=== PATIENT | male | born 1955 ===

== ENCOUNTER 2022-02-16 16:12 | Inpatient (IN) | payer MEDICARE ==
[~2022-02-16] VITALS: Ht 182.9 cm; Wt 110.0 kg
--- NOTE | 2022-02-16 16:37 | Progress Note ---
Progress Note Jordin Arias is a 66 year old male with history of T2DM and CAD who presented to [facility] with hypoglycemia. His blood sugars were in the 30s. He takes Glipizide. His blood sugar improved. His workup revealed an elevated high-sensitivity troponin 726. He then admitted to having had chest pain for several days. His EKG did not reveal any ST elevations. He was given ASA, Plavix, and started on Heparin gtt. He reportedly refused to be swabbed for flu and COVID and will be placed in isolation upon arrival. We will then attempt to obtain flu and COVID testing. We will monitor his blood sugars and treat with IV sliding scale for hyperglycemia and will add dextrose-containing fluids as needed for hypoglycemia. He will be transferred to [facility] ICU for NSTEMI. Dr. Thompson was contacted and is aware of the patient and plan. There is no ETA at this time. LAINEY CERRATO MD Feb 16, 2022 16:37
--- OUTSIDE RECORDS SUMMARY | 2022-02-16 18:09 | XMS REPORT | Clinical Summary ---
Author Author [facility] Organization [facility] Address Unknown Phone Unavailable Care Team Providers Care Phlebotomist Medical Lab Assistant Name Role Phone TarikNayeli CRISTOFER PCP Allergies Comments Active Allergy Reactions Severity Noted Date Penicillins Anaphylaxis High 02/14/2021 Sulfa (Sulfonamide Hives Medium 02/14/2021 Antibiotics) Medications End Date Status Medication Sig Dispensed Refills Start Date Active atorvastatin (LIPITOR) 80 Take 80 mg by 0 MG tablet mouth daily. Active tamsulosin (FLOMAX) 0.4 Take 0.4 mg 0 mg cap by mouth daily. Active metformin (GLUCOPHAGE) Take 1,000 mg 0 1000 mg tablet by mouth 2 (two) times a day with meals. Active famotidine (PEPCID) 20 MG Take 20 mg by 0 tablet mouth 2 (two) times a day. Active lisinopriL Take 10 mg by 0 (PRINIVIL,ZESTRIL) 10 MG mouth daily. tablet Active SITagliptin (JANUVIA) 100 Take 100 mg 0 MG tablet by mouth daily. Active glimepiride (AMARYL) 2 MG Take 2 mg by 0 tablet mouth 2 (two) times a day. Active albuterol (VENTOLIN HFA) Inhale 2 0 90 mcg/actuation HFA puffs every 6 inhaler (six) hours as needed for wheezing. Active ciprofloxacin HCl (CIPRO) Take 1 tablet 9 tablet 0 500 MG tabletIndications: (500 mg 2 HAP/VAP, pneumonia, total) by bronchiectasis mouth 2 (two) times a day. Active clopidogreL (PLAVIX) 75 Take 1 tablet 30 tablet 1 mg tablet (75 mg total) 2 by mouth daily. Active colestipoL (COLESTID) 1 Take 2 60 tablet 0 gram tabletIndications: tablets (2 g 2 diarrhea total) by mouth 2 (two) times a day. Active digoxin (LANOXIN) 125 mcg Take 1 tablet 30 tablet 1 (0.125 mg) tablet (125 mcg 2 total) by mouth every evening. Active magnesium oxide (MAG-OX) Take 1 tablet 30 tablet 0 400 mg (241.3 mg (400 mg 2 magnesium) total) by tabletIndications: mouth daily. hypomagnesemia Active metroNIDAZOLE (FLAGYL) Take 1 tablet 9 tablet 0 0 500 MG tabletIndications: (500 mg 2 pneumonia total) by mouth 2 (two) times a day. Active sotaloL (BETAPACE) 160 MG Take 1 tablet 60 tablet 0 tabletIndications: (160 mg 2 prevention of recurrent total) by atrial fibrillation mouth every 12 (twelve) hours. Active warfarin (COUMADIN) 1 MG Take 2 60 tablet 0 0 tabletIndications: tablets (2 mg 2 prevent thromboembolism total) by in chronic atrial mouth every fibrillation evening. Or take as directed based on INR test result (goal range 2-3) Active vancomycin (VANCOCIN) 125 Take 1 54 capsule 0 MG capsuleIndications: capsule (125 2 CLOSTRIDIUM DIFFICILE mg total) by INFECTION mouth 4 (four) times a day. Active Problems Problem Noted Date Diabetes mellitus type 2, noninsulin dependent 05/09 Asthma 05/09/2021 S/P coronary artery stent placement 05/09/2021 Hypomagnesemia 03/13/2021 Last Assessment & Plan: Formatting of t his note might be different from the original. -Magnesium 1.4. -Will start PO magnesium replacement as he no longer has IV access ( may aggravate diarrhea) -Electrolyte replacement protocol as ne eded. -Continue to monitor. Nephrolithiasis 03/11/2021 Last Assessment & Plan: Formatting of t his note might be different from the original. -CT enterography incidentally noted 13 x 20 mm calculus in the left renal pelvis with urothelial inflammation and perinephric stranding. -Patient reports history of kidney ston es requiring prior interventions. Denies any symptoms at this time. -UA ordered to rule out infectious proc ess. -Discussed urology evaluation and patie nt not concerned about this at this time; will defer to outpatient for now. RBC Alloantibody present. 03/07/2021 Iron deficiency anemia 03/06/2021 Last Assessment & Plan: Formatting of t his note might be different from the original. -Hemoglobin stable. -S/p 3 units PRBCs this admission. -Concern for possible GI bleeding with intermittent dark stools. -EGD and colonoscopy negative for obvio us signs of bleeding. -CT enterography nondiagnostic but no o bvious evidence of strictures or inflammation. -Video capsule study performed on 03/11. Showed normal mucosa throughout the small bowel. No evidence of AVMs, erosions, or other process to explain anemia. -Continue PPI daily for 4 weeks. -Monitor hemoglobin and transfuse for h emoglobin less than 7.0. Hospital-acquired pneumonia 02/26/2021 Last Assessment & Plan: Formatting of t his note might be different from the original. -History of recurrent pneumonia at [facility] once per year per patient. -Completed 10-day course of aztreonam w ithout improvement in his symptoms. -Pulmonology consulted and performed a bronchoscopy on 03/08. -Respiratory panel from bronchoscopy on 03/08 was positive for Pseudomonas and culture grew achromobacter; see abo ve. -Continue antibiotics as above. -Encouraged frequent use of PEP device. PT/OT also recommended if patient agreeable. -Guaifenesin ordered as needed. Type 2 myocardial infarction 02/15/2021 Last Assessment & Plan: Formatting of t his note might be different from the original. -Likely demand ischemia. -Cardiology following. CAD S/P percutaneous coronary angioplasty 02/15/2021 Last Assessment & Plan: Formatting of t his note might be different from the original. -Continue ticagrelor. Stopped ASA with initiation of anticoagulation (warfarin). Chronic obstructive pulmonary disease 02/15/2021 Last Assessment & Plan: Formatting of t his note might be different from the original. -Continue bronchodilators. -See above. BPH (benign prostatic hyperplasia) 02/15/2021 Last Assessment & Plan: Formatting of t his note might be different from the original. -Continue tamsulosin. [facility] on CPAP 02/15/2021 Last Assessment & Plan: Formatting of t his note might be different from the original. -Continue CPAP nightly if tolerated. H as had trouble tolerating hospital equipment. Okay to use home equipment if available but [place] so unlikely to be able to obtain. Non-insulin dependent type 2 diabetes mellitus 02/15 Last Assessment & Plan: Formatting of t his note might be different from the original. -Hemoglobin A1c 7.1. -Blood sugars continue to fluctuate up and down. -Holding home glimepiride. -Increase Lantus to 24 units nightly. -Continue Humalog 5 units 3 times daily with meals plus sliding scale insulin (level increased today) as need ed. -Accu-Cheks with sliding scale insulin as needed. -Hypoglycemia protocol. HLD (hyperlipidemia) 02/15/2021 Last Assessment & Plan: Formatting of t his note might be different from the original. -Continue statin. Atrial fibrillation with rapid ventricular response 02/14/2021 Last Assessment & Plan: Formatting of t his note might be different from the original. -Patient continues to have some intermi ttent episodes of atrial fibrillation, but much less frequent ov erall. -Evaluated by EP who recommended contin uing sotalol and digoxin. -Continue sotalol per cardiology recomm endations. -Continue digoxin. -Cardiology signed off. Per their recom mendations, patient likely will continue to have episodes of atrial fib rillation. Recommended if patient is symptomatic from RVR, can try diltiazem 60 mg p.o. x1. No other interventions recommended unless patien t has >24 hours of atrial fibrillation. -MCOT on discharge. -Could consider ablation as an outpatie nt after 1 month MCOT and follow-up in clinic to discuss. -Continue warfarin for anticoagulation; pharmacy to dose. 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 Last Assessment & Plan: Formatting of t his note might be different from the original. -Recently hospitalized for 1 week at [facility]. Symptoms for least 3 weeks. -Previously unvaccinated. Obesity (BMI 30.0-34.9) 04/22/2020 Last Assessment & Plan: Formatting of t his note might be different from the original. -BMI of Body mass index is 33.92 kg/m . complicates all care. Will plan for counseling regarding diet and exerc ise. Paroxysmal atrial fibrillation 04/22/2020 [facility] on CPAP 04/22/2020 Chronic systolic (congestive) heart failure 04/21/19 21 Overview: Formatting of this note might be differ ent from the original. Added automatically from request for [facility] [id number] Formatting of this note might be differ ent from the original. Added automatically from request for [facility] [id number] Last Assessment & Plan: Formatting of t his note might be different from the original. -Most recent echocardiogram with EF 40% (improved from 25% in 03/2020). -Cardiology following. -Remains euvolemic on exam. Previously recommended trial of furosemide after blood transfusions to see if this helped his respiratory symptoms but patient declined. -Daily weights monitor I's and O's. 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 difficile diarrhea 02/23/2021 05/09/2021 Last Assessment & Plan: Formatting of t his note might be different from the original. -C. difficile positive on 02/24/2021. -Continues to have diarrhea and patient reports this is a chronic issue, but much more frequent than baseline. -GI following; EGD, colonoscopy, and vi marisela capsule study completed as noted above. -Patient has completed a full course of vancomycin for C. difficile colitis but will continue oral vancomycin for n ow until finished with antibiotics for pneumonia. -Continue colestipol per GI. -Lactobacillus. -Enteric precautions. Bronchiectasis with (acute) exacerbation 02/15/2021 05/09/2021 Last Assessment & Plan: Formatting of t his note might be different from the original. -Completed 10-day course of aztreonam w ithout improvement in symptoms. -Pulmonology initially offered bronchos copy but patient was not interested at that time. However, despite nebuliz er treatments and antibiotics symptoms do not appear improved and if anything worse per patient. Reconsulted pulmonary on 03/07 and patie nt underwent bronchoscopy on 03/08. -Respiratory panel from bronchoscopy wa s positive for Pseudomonas. Culture growing achromobacter which came back w ith intermediate sensitivity to ciprofloxacin. -Per ID and Pulm: Continue ciprofloxaci n (day #6). Respiratory symptoms have improved since starting ciprofloxa jessica; -Per pulmonary, suspect chronic bronchi ectasis (as noted by radiology) and needs outpatient follow-up with PFTs an d serial imaging. Will need follow-up on discharge. Family History Medical History Relation Name Comments Heart attack Father Heart attack Mother Relation Name Status Comments Father Mother Social History Date Tobacco Use Types Packs/Day Years Used Smoking Tobacco: Never Assessed Sex Assigned at Date Recorded Not on file Last Filed Vital Signs Reading Time Taken Comments Vital Sign 114/58 03/15/2021 11:12 AM [employer]AR[employer] TECHNICIAN Blood Pressure 79 03/15/2021 11:12 AM PEARL TECHNICIAN Pulse 36.6 C (97.9 F) 03/15/2021 11:12 AM PEARL TECHNICIAN Temperature 18 03/15/2021 11:12 AM PEARL TECHNICIAN Respiratory Rate 96% 03/15/2021 11:12 AM PEARL TECHNICIAN Oxygen Saturation - - Inhaled Oxygen Concentration 110.5 kg (243 lb 11.2 oz) 03/15/2021 4:21 AM PEARL TECHNICIAN Weight 182.9 cm (6') 02/14/2021 10:13 PM PEARL TECHNICIAN Height 33.05 02/14/2021 10:13 PM PEARL TECHNICIAN Body Mass Index Plan of Treatment Health Maintenance Due Date Last Done Comments Diabetes Mellitus 1954 Ophthalmology Exam FIT-DNA 1954 Fecal Occult Blood or FIT 1954 Hepatitis C Screen 1954 Medicare Annual Wellness 1954 Sigmoidoscopy 1954 Spirometry # 1954 Td/Tdap# 1954 COVID-19 Vaccine (#1) 03/01/1955 Pneumococcal Vaccine: 65+ 1960 Years (1 - PCV) Diabetes Mellitus Foot 1964 Exam Zoster Vaccine# (1 of 2) 2004 Depression Screening 08/30/2019 PHQ-9 # Advance Care Planning 02/26/2021 Conversation# Social Determinants of 02/26/2021 02/14/2021 Health# Diabetes Mellitus 08/15/2021 02/14/2021 Hemoglobin A1C Influenza Vaccine (#1) 2021 Lipid Screening 02/15/2022 02/15/2021, 04/22/2020, 04/22/2020 Fall Risk Assessment # 03/15/2022 03/15/2021 Colonoscopy 03/08/2031 03/08/2021 Colorectal Cancer 03/08/2031 Screening Results Not on filefrom Last 3 Months Insurance Type Payer Benefit Subscriber ID Effective Phone Address Plan / Dates Group MEDICARE REPLACEMENT PLAN [facility] [id number] 2021-P [phone] [address] MED[address]ARE resent [id number] [place] [address] MEDICAID PENDING MEDICAID [id number] [address] PEND[address] resent [id number] [place] [address] [place] [id number] 2021 PO [employer] -Present [address] [place] [address] Advance Directives For more information, please contact: [phone] Date Inactivated Comments Code Status Date Activated Full Code 03/08/2021 7:47 AM Date Inactivated Comments Code Status Date Activated 03/08/2021 7:47 AM Full Code 02/15/2021 4:57 AM Care Teams Start Date End Date Phlebotomist Medical Lab Assistant Relationship Specialty 02/15/21 Nayeli Montanez FNP PCP - General Nurse [address] [place] [address] THALIA CRUZ [id number]
[2022-02-16] MEDS ORDERED: BISACODYL 10 MG SUPP (DULCOLAX) PR PRN (18:15)
[2022-02-16] MEDS ORDERED: ACETAMINOPHEN 325 MG TABLET PO PRN (18:15)
[2022-02-16] MEDS ORDERED: diphenhydrAMINE 25 MG TAB (BENADRYL) PO PRN (18:15)
[2022-02-16] MEDS ORDERED: LACTULOSE SYRUP 10GM/15ML (ENULOSE) 30ML UDC PO PRN (18:15)
[2022-02-16] MEDS ORDERED: CALCIUM CARBONATE 500 MG (TUMS) TAB.CHEW PO PRN (18:15)
[2022-02-16] MEDS ORDERED: ONDANSETRON 4 MG (ZOFRAN) ORAL DISSOLVE TAB PO PRN (18:15)
[2022-02-16] MEDS ORDERED: polyethylene glycoL POWDER 17 GM (MIRALAX) PACK PO PRN (18:15)
[2022-02-16] MEDS ORDERED: ONDANSETRON 4 MG/2 ML (SDV) Z0FRAN IV PRN (18:15)
[2022-02-16] MEDS ORDERED: MELATONIN 3 MG TABLET PO PRN (18:15)
[2022-02-16] MEDS ORDERED: diphenhydrAMINE 50 MG/ML INJ (BENADRYL) IVP PRN (18:15)
[2022-02-16] MEDS ORDERED: ANTACID SUSP 30 ML UDC (MYLANTA) PO PRN (18:15)
[2022-02-16] MEDS ORDERED: MILK OF MAGNESIA 400 MG/5 ML 30 ML UDC PO PRN (18:15)
[2022-02-16] MEDS ORDERED: HEParin 1000 UNIT/ML (10ML VIAL) FOR BOLUS IV PRN (18:45)
[2022-02-16] MEDS ORDERED: HEParin DRIP 25000 UNIT/500ML 500 ML IV SCH (18:45)
[2022-02-16 19:18] LABS: HEMATOCRIT 36 % (40-54); HEMOGLOBIN 11.5 g/dL (13.3-17.7); MEAN CORPUSCULAR HEMOGLOBIN 31 pg (25-34); MEAN CORPUSCULAR HGB CONC 32 g/dL (32-36); MEAN CORPUSCULAR VOLUME 98 fL (80-99); MEAN PLATELET VOLUME 9.4 fL (9.0-12.2); PLATELET COUNT 210 10^3/uL (130-400)
[2022-02-16] MEDS: D5 NS 1000 ML IV SOLUTION 1,000 ML IV SCH (19:25)
[2022-02-16 19:31] LABS: INR 1.1 (0.8-1.4)
[2022-02-16 19:35] LABS: ALBUMIN 3.6 GM/DL (3.2-4.5); CALCIUM 8.6 MG/DL (8.5-10.1); CREATININE SERUM 1.73 MG/DL (0.60-1.30); POTASSIUM 3.3 MMOL/L (3.6-5.0); TOTAL PROTEIN 6.9 GM/DL (6.4-8.2)
[2022-02-16] MEDS: DOCUSATE SODIUM 100 MG (COLACE) CAP PO SCH (20:46)
[2022-02-16] MEDS: SENNOSIDES 8.6 MG (SENOKOT) TAB PO SCH (20:47)
[2022-02-16] MEDS: inSUlin ASPART (NovoLOG) 1 UNIT/0.01 ML (CHARGE PER UNIT) SC SCH (21:05)
[2022-02-16] MEDS ORDERED: NS IV 500 ML 500 ML IV PRN (21:30)
[2022-02-17] MEDS: D5 NS 1000 ML IV SOLUTION 1,000 ML IV SCH (01:49)
[2022-02-17 02:09] LABS: BASOPHILS % (AUTO) 0 % (0-10); EOSINOPHILS % (AUTO) 0 % (0-10); HEMATOCRIT 32 % (40-54); HEMOGLOBIN 10.4 g/dL (13.3-17.7); LYMPHOCYTES % (AUTO) 22 % (12-44); MEAN CORPUSCULAR HEMOGLOBIN 32 pg (25-34); MEAN CORPUSCULAR HGB CONC 32 g/dL (32-36); MEAN CORPUSCULAR VOLUME 99 fL (80-99); MEAN PLATELET VOLUME 9.6 fL (9.0-12.2); MONOCYTES # (AUTO) 0.7 10^3/uL (0.0-1.0); MONOCYTES % (AUTO) 8 % (0-12); NEUTROPHILS # (AUTO) 6.2 10^3/uL (1.8-7.8); NEUTROPHILS % (AUTO) 70 % (42-75); PLATELET COUNT 193 10^3/uL (130-400)
[2022-02-17 02:26] LABS: POTASSIUM 3.4 MMOL/L (3.6-5.0)
[2022-02-17 02:31] LABS: CREATININE SERUM 1.65 MG/DL (0.60-1.30)
[2022-02-17] MEDS: KCL 20 MEQ TAB (K-DUR) PO SCH (03:03)
[2022-02-17] MEDS: POTASSIUM CL 10MEQ/50ML IVPB 50 ML IV SCH ×3 (03:04→04:37)
[2022-02-17] MEDS: MAGNESIUM 1 GM/100 ML IVPB 100 ML IV SCH (03:31)
[2022-02-17] MEDS: inSUlin ASPART (NovoLOG) 1 UNIT/0.01 ML (CHARGE PER UNIT) SC SCH ×4 (03:32→21:17)
[2022-02-17] MEDS ORDERED: POTASSIUM CL 10MEQ/50ML IVPB 100 ML IV ONE (03:34)
[2022-02-17 03:39] VITALS: BP 120/70
[2022-02-17] MEDS ORDERED: RT-ALBUTEROL/IPRATROPIUM 3 ML (DUONEB) VIAL INH PRN (04:00)
[2022-02-17] MEDS: RT-ALBUTEROL/IPRATROPIUM 3 ML (DUONEB) VIAL INH SCH ×5 (07:07→22:09)
[2022-02-17] MEDS: CLOPIDOGREL 75 MG (PLAVIX) TABLET PO SCH (08:28)
[2022-02-17] MEDS: DOCUSATE SODIUM 100 MG (COLACE) CAP PO SCH ×2 (08:28→19:50)
[2022-02-17] MEDS: SENNOSIDES 8.6 MG (SENOKOT) TAB PO SCH ×2 (08:28→19:51)
[2022-02-17] MEDS ORDERED: ASPIRIN 81 MG CHEW (CHILDREN'S ASA) PO SCH (09:00)
--- NOTE | 2022-02-17 09:26 | Diagnostic Imaging Report ---
Indication: Cough and shortness of air. Time of Exam: 9:16 AM No prior studies are available for comparison. Heart size normal. There appears to be some consolidation in the left base, obscuring the left hemidiaphragm. There may be minimal patchy infiltrate in the right base as well near the costophrenic angle. Otherwise the lungs appear clear. No effusion or pneumothorax is seen. Impression: Bibasilar infiltrates, left greater suggestive of pneumonia. Dictated by: Dictated on workstation # [id number]
--- NOTE | 2022-02-17 10:16 | Tele-ICU Consult ---
History of Present Illness History of Present Illness Date Seen by Provider: Feb 17, 2022 Time Seen by Provider: 10:16 Date of Admission (Tele-ICU Physician , consultation as per request of PCP Service provided via interactive audio and video telecommunications E-CARE system to a patient admitted to ICU bed in [facility]. Available chart/ vitals / labs / Images reviewed H&P is from ER notes Patient's information available about PMH, Shx, Fhx allergy reviewed inEMR. ROS as per chart and RN report Now in ICU, hemodynamically stable Video assessment done using teleICU camera, rest of exam as per RN Discussed with RN. Consultants: semaj Hospital course: transfer from [facility] to [facility] where was presented with hypoglycemia. 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 Lines : periph , (Central Line Necessity Reviewed) Bowman: void OG: Nutrition: Analgesia: Anxiety/ delirium VTE Prophylaxis: hep gtt Stress Ulcer Prophylaxis: na Plans in collaboration with bedside consultants and IM MDs. Discussed with RN to reach out if any questions or concerns A total of 15 minutes of critical care time was devoted to this patient today, required to treat and/or prevent further deterioration of critical care condition ( as above ) . I am remotely monitoring this patient from another state. I am unable to do the bedside exam, and history/physical and pertinent information is taken from other notes in the computer and bedside staff. . Allergies and Home Medications Allergies Coded Allergies: Penicillins (Verified Allergy, Severe, Anaphylaxis, 02/16/22) Sulfa (Sulfonamide Antibiotics) (Verified Allergy, Unknown, Hives, 02/16/22) Past Medical/Social/Family Hx Patient Social History Tobacco Use?: No Use of E-Cig and/or Vaping dev: No Substance use?: No Alcohol Use?: Yes Alcohol type: Beer Alcohol Frequency: Couple times a week 6 PK/WEEK Pt stated abuse/neglect: No Immunizations Up To Date Influenza Vaccine Up-to-Date: No; Not Current Current Status Advance Directives: No Communicates: Verbally Primary Language: Syriac Is interpretation needed?: Unable to obtain Sensory deficits: Vision impairment Implanted or Applied Medical D: Stents Review of Systems Constitutional: see HPI Focused Exam Height, Weight, BMI Height: '" Weight: lbs. oz. kg; 32.64 BMI Method: Exam Exam Patient acknowledged, consented, and participated in this virtual visit which was conducted using real time audio/video Vital Signs Date Time Temp Pulse Resp B/P (MAP) Pulse Ox O2 Delivery O2 Flow Rate FiO2 02/17/22 09:00 82 13 141/76 (97) 100 Nasal Cannula 1.00 02/17/22 08:00 84 14 134/76 (95) 95 Nasal Cannula 1.00 02/17/22 08:00 Nasal Cannula 1.00 02/17/22 07:47 37.0 02/17/22 07:07 100 Nasal Cannula 1.00 02/17/22 07:00 81 24 143/75 (97) 100 Nasal Cannula 1.00 02/17/22 07:00 82 02/17/22 06:00 84 20 142/74 (96) 98 Nasal Cannula 1.00 02/17/22 05:00 83 16 129/67 (87) 96 Nasal Cannula 1.00 02/17/22 04:00 37.0 02/17/22 04:00 87 18 125/67 (86) 95 Nasal Cannula 1.00 02/17/22 04:00 Nasal Cannula 1.00 02/17/22 03:43 Nasal Cannula 1.00 02/17/22 03:39 37.9 87 92 24 02/17/22 03:15 92 Nasal Cannula 1.00 02/17/22 03:00 88 20 120/58 (78) 94 Nasal Cannula 2.00 02/17/22 02:00 90 24 130/60 (83) 95 Nasal Cannula 2.00 02/17/22 01:34 Nasal Cannula 2.00 02/17/22 01:00 37.9 02/17/22 01:00 91 02/17/22 01:00 91 22 120/58 (78) 94 Room Air 02/17/22 00:34 37.9 02/17/22 00:04 38.1 02/17/22 00:00 91 16 132/68 (89) 90 Room Air 02/17/22 00:00 38.1 02/16/22 23:59 Room Air 02/16/22 23:00 89 15 120/70 (87) 91 Room Air 02/16/22 22:00 90 26 133/72 (92) 92 Room Air 02/16/22 21:00 90 26 130/85 (100) 92 Room Air 02/16/22 20:00 37.9 02/16/22 20:00 84 16 120/74 (89) 92 Room Air 02/16/22 20:00 Room Air 02/16/22 19:00 85 15 128/71 (90) 92 Room Air 02/16/22 19:00 85 02/16/22 18:36 37.7 02/16/22 18:31 Room Air 02/16/22 18:10 Room Air I & O 02/17/22 07:00 Intake Total 1450 ml Output Total 650 ml Balance 800 ml Height & Weight Height: '" Weight: lbs. oz. kg; 32.64 BMI Method: General Appearance: No Apparent Distress Results Lab Laboratory Tests 02/16/22 19:08 02/17/22 01:52 Assessment/Plan Assessment/Plan 1 JUAN RAMON PETER MD Feb 17, 2022 10:16
--- NOTE | 2022-02-17 10:21 | Consultation-Cardiology ---
HPI-Cardiology Cardiology Consultation Date of Consultation 02/17/22 Date of Admission Time Seen by Provider: 10:16 Indication: Non-ST elevation myocardial infarction HPI 66-year-old gentleman with history of coronary artery disease, 2 stents in the past about [address] Liu, paroxysmal atrial fibrillation. Patient felt that he was coming out with congestion, he was having increasing shortness of breath and phlegm production. Has been having some chest pain on and off. Came into the emergency room due to hypoglycemia. Work-up showed positive troponin. He has been having chest pain on and off. No active chest pain today, EKG showed nonspecific changes. Still having significant sputum production Home Medications & Allergies Allergies: Coded Allergies: Penicillins (Verified Allergy, Severe, Anaphylaxis, 02/16/22) Sulfa (Sulfonamide Antibiotics) (Verified Allergy, Unknown, Hives, 02/16/22) Home Medication List Reviewed: Yes [id number] Hx Patient Social History Marital Status: Have you traveled recently?: No Alcohol Use?: Yes Past Medical History Discussed below Family Medical History Family Medical Hx Noncontributory Review of Systems-General Review of Systems Constitutional: see HPI, malaise EENTM: see HPI, no symptoms reported Respiratory: see HPI, cough, dyspnea on exertion, phlegm Cardiovascular: see HPI, chest pain Gastrointestinal: no symptoms reported, see HPI Genitourinary: no symptoms reported, see HPI Musculoskeletal: no symptoms reported, see HPI Skin: no symptoms reported, see HPI Psychiatric/Neurological: No Symptoms Reported, See HPI Reviewed Test Results Reviewed Test Results Lab Laboratory Tests Test 02/16/22 18:22 02/16/22 19:08 02/16/22 20:53 02/17/22 01:51 Range/Units Glucometer 59 *L 118 H 70-110 MG/DL White Blood Count 9.0 4.3-11.0 10^3/uL Red Blood Count 3.68 L 4.30-5.52 10^6/uL Hemoglobin 11.5 L 13.3-17.7 g/dL Hematocrit 36 L 40-54 % Mean Corpuscular Volume 98 80-99 fL Mean Corpuscular Hemoglobin 31 25-34 pg Mean Corpuscular Hemoglobin Concent 32 32-36 g/dL Red Cell Distribution Width 13.3 10.0-14.5 % Platelet Count 210 130-400 10^3/uL Mean Platelet Volume 9.4 9.0-12.2 fL Prothrombin Time 15.0 H 12.2-14.7 SEC INR Comment 1.1 0.8-1.4 Activated Partial Thromboplast Time 101 H 24-35 SEC Sodium Level 138 135-145 MMOL/L Potassium Level 3.3 L 3.6-5.0 MMOL/L Chloride Level 106 98-107 MMOL/L Carbon Dioxide Level 20 L 21-32 MMOL/L Anion Gap 12 5-14 MMOL/L Blood Urea Nitrogen 52 H 7-18 MG/DL Creatinine 1.73 H 0.60-1.30 MG/DL Estimat Glomerular Filtration Rate 43 BUN/Creatinine Ratio 30 Glucose Level 77 70-105 MG/DL Calcium Level 8.6 8.5-10.1 MG/DL Corrected Calcium 8.9 8.5-10.1 MG/DL Total Bilirubin 1.0 0.1-1.0 MG/DL Aspartate Amino Transf (AST/SGOT) 46 H 5-34 U/L Alanine Aminotransferase (ALT/SGPT) 26 0-55 U/L Alkaline Phosphatase 101 40-136 U/L Troponin I 0.393 *H <0.028 NG/ML Total Protein 6.9 6.4-8.2 GM/DL Albumin 3.6 3.2-4.5 GM/DL Magnesium Level 2.0 1.6-2.4 MG/DL Test 02/17/22 01:52 02/17/22 09:00 02/17/22 09:30 Range/Units White Blood Count 9.0 4.3-11.0 10^3/uL Red Blood Count 3.28 L 4.30-5.52 10^6/uL Hemoglobin 10.4 L 13.3-17.7 g/dL Hematocrit 32 L 40-54 % Mean Corpuscular Volume 99 80-99 fL Mean Corpuscular Hemoglobin 32 25-34 pg Mean Corpuscular Hemoglobin Concent 32 32-36 g/dL Red Cell Distribution Width 13.2 10.0-14.5 % Platelet Count 193 130-400 10^3/uL Mean Platelet Volume 9.6 9.0-12.2 fL Immature Granulocyte % (Auto) 0 % Neutrophils (%) (Auto) 70 42-75 % Lymphocytes (%) (Auto) 22 12-44 % Monocytes (%) (Auto) 8 0-12 % Eosinophils (%) (Auto) 0 0-10 % Basophils (%) (Auto) 0 0-10 % Neutrophils # (Auto) 6.2 1.8-7.8 10^3/uL Lymphocytes # (Auto) 2.0 1.0-4.0 10^3/uL Monocytes # (Auto) 0.7 0.0-1.0 10^3/uL Eosinophils # (Auto) 0.0 0.0-0.3 10^3/uL Basophils # (Auto) 0.0 0.0-0.1 10^3/uL Immature Granulocyte # (Auto) 0.0 0.0-0.1 10^3/uL Activated Partial Thromboplast Time 60 H 68 H 24-35 SEC Sodium Level 136 135-145 MMOL/L Potassium Level 3.4 L 3.6-5.0 MMOL/L Chloride Level 106 98-107 MMOL/L Carbon Dioxide Level 17 L 21-32 MMOL/L Anion Gap 13 5-14 MMOL/L Blood Urea Nitrogen 47 H 7-18 MG/DL Creatinine 1.65 H 0.60-1.30 MG/DL Estimat Glomerular Filtration Rate 45 BUN/Creatinine Ratio 28 Glucose Level 144 H 70-105 MG/DL Calcium Level 8.0 L 8.5-10.1 MG/DL Troponin I 0.291 *H <0.028 NG/ML Physical Exam Physical Exam Vital Signs Vital Signs - First Documented 02/16/22 02/16/22 02/16/22 02/17/22 02/17/22 18:10 18:36 19:00 01:34 03:39 Temp 37.7 Pulse 85 Resp 15 B/P (MAP) 128/71 (90) Pulse Ox 92 O2 Delivery Room Air O2 Flow Rate 2.00 FiO2 24 Capillary Refill : Height, Weight, BMI Height: '" Weight: lbs. oz. kg; 32.64 BMI Method: General Appearance: No Apparent Distress Eyes: Bilateral Eye Normal Inspection, Bilateral Eye PERRL, Bilateral Eye EOMI HEENT: PERRL/EOMI, TMs Normal, Normal ENT Inspection, Pharynx Normal, Moist Mucous Membranes Neck: Full Range of Motion, Normal Inspection, Non Tender, Supple, Carotid Bruit Respiratory: Chest Non Tender, No Accessory Muscle Use, No Respiratory Distress, Rales, Rhonci Cardiovascular: Regular Rate, Rhythm, No Edema, No Gallop, No JVD, Normal Peripheral Pulses, Systolic Murmur Gastrointestinal: Normal Bowel Sounds, No Organomegaly, No Pulsatile Mass, Non Tender, Soft Back: Normal Inspection, No CVA Tenderness, No Vertebral Tenderness Extremity: Normal Capillary Refill, Normal Inspection, Normal Range of Motion, Non Tender, No Calf Tenderness, No Pedal Edema Neurologic/Psychiatric: Alert, Oriented x3, No Motor/Sensory Deficits, Normal Mood/Affect Skin: Normal Color, Warm/Dry Lymphatic: No Adenopathy A/P-Cardiology Admission Diagnosis Non-ST elevation myocardial infarction Paroxysmal atrial fibrillation Hypertension Hyperlipidemia Pneumonia Assessment/Plan Non-ST elevation myocardial infarction, has been having recurrent chest pain Coronary artery disease, history of 2 stents about 10 years ago Planning to proceed with cardiac catheterization possible PTCA Paroxysmal atrial fibrillation, has been maintained on warfarin and sotalol. Restart medication monitor blood pressure Pneumonia, bilateral pulmonary infiltrate, shortness of breath with cough and sputum production Managed by medical team Diabetes mellitus, episode of hypoglycemia. Managed by medical team Hypertension, restart medication monitor blood pressure Hyperlipidemia, restart medication and monitor lipids Obesity, BMI 32, discussed weight loss. Shortness of breath, probably secondary to pneumonia. DARCIE BEAL MD Feb 17, 2022 10:21
--- NOTE | 2022-02-17 10:24 | Cardiac Procedure Note-CS/ASA ---
Pre-Procedure Note Pre-Op Procedure Note Date of Available H&P: Feb 17, 2022 Date H&P Reviewed: Feb 17, 2022 Time H&P Reviewed: 10:23 History & Physical: H&P Reviewed, Patient Examed, No changes noted Pre-Operative Diagnosis: NSTMI Conscious Sedation Pre-Proced Time 10:24 ASA Score 3 For ASA 3 and 4: Consider anesthesia and medical clearance. Also, for patients with a history of failed moderate sedation consider anesthesia. Airway Lungs Heart ASA score ASA 1: a normal healthy patient ASA 2: a patient with a mild systemic disease (mid diabetes, controlled hypertension, obesity ASA 3: a patient with a severe systemic disease that limits activity (angina, COPD, prior Myocardial infarction) ASA 4: a patient with an incapacitating disease that is a constant threat to life (CHF, renal failure) ASA 5: a moribund patient not expected to survive 24 hrs. (ruptured aneurysm) ASA 6: a declared brain- patient whose organs are being harvested. For emergent operations, add the letter E after the classification Mallampati Classification Grade 3 Sedation Plan Analgesia, Amnesia, Plan communicated to team members, Discussed options with patient/fam, Discussed risks with patient/fam The patient is an appropriate candidate to undergo the planned procedure, sedation, and anesthesia. The patient immediately re-assessed prior to indication. DARCIE BEAL MD Feb 17, 2022 10:24
[2022-02-17] MEDS ORDERED: VERAPAMIL 5 MG/2 ML (CALAN) VIAL IV ONE (10:27)
[2022-02-17] MEDS ORDERED: fentaNYL INJ 100 MCG/2 ML AMP ONE (10:27)
[2022-02-17] MEDS ORDERED: HEParin 1000 UNIT/ML (10ML VIAL) FOR BOLUS ONE (10:27)
[2022-02-17] MEDS ORDERED: MIDAZOLAM 5 MG/5 ML (VERSED) VIAL ONE (10:27)
[2022-02-17] MEDS ORDERED: NS IV 1000 ML 1,000 ML ONE (10:28)
[2022-02-17] MEDS ORDERED: NITRO DRIP 25000 MCG/D5W 250 ML IV ONE (10:28)
[2022-02-17] MEDS ORDERED: LIDOCAINE 1% INJ 30 ML (XYLOCAINE) VIAL ONE (10:28)
[2022-02-17] MEDS ORDERED: HEParin (CATH LAB) 2,000 ML IV ONE (10:28)
--- NOTE | 2022-02-17 10:30 | History & Physical-Hospitalist ---
History of Present Illness HPI/Chief Complaint Jordin Arias is a 66 year old male with PMH HTN, T2DM, HLD, CAD, AFib, obesity, who presented with shortness of breath. He says he thought he had pneumonia. He reports congestion and cough. He has had significant sputum production. He has also had fevers. He reports intermittent chest pain. He associates it with taking a deep breath. He denies diaphoresis. He denies nausea and vomiting. His blood sugar was low on arrival. He take a sulfonylurea. He refused to have a nasal swab for MRSA, COVID, or flu. He was transferred from [facility] with NSTEMI. Source: patient Exam Limitations: no limitations Date Seen 02/17/22 Time Seen by a Provider: 08:40 Attending Physician No,Local Physician PCP Admitting Physician: Lainey Cerrato MD Attending Physician: Lainey Cerrato MD Referring Physician Date of Admission Feb 16, 2022 at 18:06 Home Medications & Allergies Home Medications Reviewed patient Home Medication Reconciliation performed by pharmacy medication reconciliations orthodontic lab technician and/or nursing. Patients Allergies have been reviewed. Allergies Allergies Coded Allergies Penicillins (Verified Allergy, Severe, Anaphylaxis, 02/16/22) Sulfa (Sulfonamide Antibiotics) (Verified Allergy, Unknown, Hives, 02/16/22) Past [id number]-Kmhrea Hx Patient Social History Marrital Status: Tobacco Use?: No Use of E-Cig and/or Vaping dev: No Substance use?: No Alcohol Use?: Yes Alcohol type: Beer Alcohol Frequency: Couple times a week Additional Alcohol Comments: 6 PK/WEEK Pt feels they are or have been: No Current Status Advance Directives: No Communicates: Verbally Primary Language: Georgian Is interpretation needed?: Unable to obtain Sensory deficits: Vision impairment Implanted or Applied Medical D: Stents Past Medical History Coronary Artery Disease, High Cholesterol, Hypertension Diabetes, Non-Insulin dep Family Medical History No Pertinent Family Hx Review of Systems Constitutional: fever, malaise EENTM: no symptoms reported Respiratory: cough, phlegm, short of breath Cardiovascular: chest pain Gastrointestinal: no symptoms reported Physical Exam Physical Exam Vital Signs Vital Signs - First Documented 02/16/22 02/16/22 02/16/22 02/17/22 02/17/22 18:10 18:36 19:00 01:34 03:39 Temp 37.7 Pulse 85 Resp 15 B/P (MAP) 128/71 (90) Pulse Ox 92 O2 Delivery Room Air O2 Flow Rate 2.00 FiO2 24 Capillary Refill : Height, Weight, BMI Height: '" Weight: lbs. oz. kg; 32.64 BMI Method: General Appearance: No Apparent Distress, Obese HEENT: PERRL/EOMI, Pharynx Normal Neck: Normal Inspection, Supple Respiratory: No Respiratory Distress, Decreased Breath Sounds Cardiovascular: Regular Rate, Rhythm, No Murmur Gastrointestinal: Normal Bowel Sounds, Soft Extremity: Normal Inspection, No Pedal Edema Neurologic/Psychiatric: Alert, Normal Mood/Affect Skin: Normal Color, Warm/Dry Results Results/Procedures Labs Laboratory Tests 02/16/22 19:08 02/17/22 01:52 Patient resulted labs reviewed. Imaging: Reviewed Imaging Report Assessment/Plan Admission Diagnosis NSTEMI Admission Status: Inpatient Order (span 2 midnights) Reason for Inpatient Admission: PNA Assessment and Plan NSTEMI Troponin elevated EKG unremarkable ASA Plavix Heparin gtt Cardiology consulted Planning for left heart cath Sepsis due to pneumonia Influenza A Fever and tachycardia overnight CXR with bibasilar infiltrates Flu and COVID swabs refused, agreed to throat swab Flu throat swab positive Add sepsis protocol Already received IV fluids prior to transfer Obtain lactic acid and blood cultures Begin Levaquin T2DM with hypoglycemia Given D5 fluids initially Blood sugar improved Sliding scale insulin HTN AFib HLD BPH Obesity Continue home meds as able DVT prophylaxis: already receiving therapeutic anticoagulation Diagnosis/Problems Diagnosis/Problems (1) NSTEMI (non-ST elevation myocardial infarction) Status: Acute (2) Sepsis due to pneumonia Status: Acute (3) Influenza A Status: Acute (4) T2DM (type 2 diabetes mellitus) Status: Acute Qualifiers: Diabetes mellitus medical terminologist insulin use: without fpc use Diabetes mellitus complication status: with hypoglycemia Diabetes mellitus complication detail: without coma Qualified Codes: E11.649 - Type 2 diabetes mellitus with hypoglycemia without coma (5) HTN (hypertension) Status: Chronic (6) HLD (hyperlipidemia) Status: Chronic (7) BPH (benign prostatic hyperplasia) Status: Chronic (8) CAD (coronary artery disease) Status: Chronic (9) Obesity Status: Chronic LAINEY CERRATO MD Feb 17, 2022 10:30
[2022-02-17] MEDS ORDERED: OSELTAMIVIR 30 MG (TAMIFLU) CAPSULE PO NR (11:00)
[2022-02-17] MEDS ORDERED: ASPIRIN 325 MG (5 GR) TABLET ONE (11:52)
[2022-02-17] MEDS ORDERED: CLOPIDOGREL 300 MG (PLAVIX) TABLET PO ONE (11:52)
--- NOTE | 2022-02-17 11:59 | Cardiac Cath Report ---
Cardiac Cath Report Physician (s)/[employer] Commander (s) Physician DARCIE BEAL MD Pre-Procedure Diagnosis Pre-Procedure Diagnosis: NSTMI Post-Procedure Note Procedure Start Date: Feb 17, 2022 Name of Procedure: Coronary angiogram Stenting to the right coronary artery Findings/Procedure Note PROCEDURE NOTE: 66-year-old gentleman admitted with influenza A, pneumonia, sepsis, had elevation in troponin and had extensive cardiac history, cardiac catheterization was advised. After explaining the procedure to the patient, all pros and cons were explained, all questions were answered. The patient signed the consent and then he was placed in the cardiac catheterization laboratory. Groin was prepped in SL fashion local anesthesia was used. Sheath placed in the right radial artery, Oxford catheter was advanced and engaged the left coronary system, I was unable to engage the right coronary system, exchanged the catheter and used Dimas right catheter and engaged the right coronary artery and angiogram was done. Patient had a 90% stenosis in the proximal right coronary artery, received a total of 6 6000 units of heparin, Dimas right with sidehole guide was used and advanced to the right coronary artery, BMW wire was advanced and parked distally, predilatation with 2.5 x 20 mm balloon then I proceeded with deployment of 3 x 23 mm shane point stent expanded to 3.1 under 16 fabby with excellent results, 0% residual stenosis. At the end of the procedure the sheath was removed. Vascular band was used FINDINGS: Hemodynamics LV did not cross the aortic valve. Aorta 89/55 mean of 41. ANATOMY: Left Main is free of obstructive disease Left Anterior Descending has patent stent proximally, mid LAD has 40% stenosis, diagonal artery has 30% ostial stenosis. Left Circumflex is moderate in size with 30% proximal stenosis, high obtuse marginal/ramus intermedius branch has 50% ostial stenosis. Right Coronary Artery is dominant artery with 90% stenosis proximally with successful stenting using shane point stent 3 x 23 deployed under 16 fabby with 0% residual stenosis. PERCUTANEOUS INTERVENTION: Pre stenosis 90% Post Stenosis 0% Pre MICHA flow 2 Post MICHA flow 3 Dominance right coronary artery CONCLUSION: 1. Non-ST elevation myocardial infarction with severe proximal right coronary artery stenosis successful angioplasty and stenting using shane point stent 3 x 23 mm expanded to 3.1 mm with excellent results 2. Patent stent in the proximal LAD with mild to moderate disease in the coronary system nonobstructive disease DISCUSSION AND RECOMMENDATION: Continue on aspirin and Plavix and Eliquis. Anesthesia Type: Conscious Sedation Estimated blood loss (mL): 15 ml Contrast Amount: 80 ml Total Radiation Dose: 929 mGy Post-Procedure Diagnosis Post-operative diagnosis: Non-ST elevation myocardial infarction Coronary artery disease Hypertension Hyperlipidemia DARCIE BEAL MD Feb 17, 2022 11:59
[2022-02-17] MEDS ORDERED: PATIENT MAY USE OWN MEDS, ALL PO SCH (12:00)
[2022-02-17] MEDS: NS IV 1000 ML 1,000 ML IV SCH ×2 (12:32→22:06)
[2022-02-17] MEDS: LACTATED RINGERS 1,000 ML IV SCH ×2 (12:44→20:46)
[2022-02-17] MEDS ORDERED: LISI10TA25 PO (15:23)
[2022-02-17] MEDS ORDERED: METF-399 PO (15:23)
[2022-02-17] MEDS ORDERED: GABA300C PO (15:23)
[2022-02-17] MEDS ORDERED: MAGN400T7 PO (15:23)
[2022-02-17] MEDS ORDERED: WARF-48 PO (15:23)
[2022-02-17] MEDS ORDERED: SOTA160T7 PO (15:23)
[2022-02-17] MEDS ORDERED: CLOP75TA28 PO (15:23)
[2022-02-17] MEDS ORDERED: DIGO250T3 PO (15:23)
[2022-02-17] MEDS ORDERED: BUDE10.7 INH (15:23)
[2022-02-17] MEDS ORDERED: ATOR80TA76 PO (15:23)
[2022-02-17] MEDS ORDERED: PIOG15TA67 PO (15:23)
[2022-02-17] MEDS ORDERED: GLIM4TAB5 PO (15:23)
[2022-02-17] MEDS ORDERED: SITA100T12 PO (15:23)
[2022-02-17] MEDS ORDERED: TMSL.4C PO (15:23)
[2022-02-17] MEDS ORDERED: FAMO20TA5 PO (15:23)
[2022-02-17] MEDS ORDERED: OSELTAMIVIR 30 MG (TAMIFLU) CAPSULE PO SCH (21:00)
[2022-02-18] MEDS: LACTATED RINGERS 1,000 ML IV SCH (00:15)
[2022-02-18] MEDS: RT-ALBUTEROL/IPRATROPIUM 3 ML (DUONEB) VIAL INH SCH ×3 (02:33→10:40)
[2022-02-18 05:15] LABS: BASOPHILS % (AUTO) 0 % (0-10); EOSINOPHILS # (AUTO) 0.1 10^3/uL (0.0-0.3); EOSINOPHILS % (AUTO) 2 % (0-10); HEMATOCRIT 30 % (40-54); HEMOGLOBIN 9.5 g/dL (13.3-17.7); LYMPHOCYTES # (AUTO) 1.6 10^3/uL (1.0-4.0); LYMPHOCYTES % (AUTO) 24 % (12-44); MEAN CORPUSCULAR HEMOGLOBIN 31 pg (25-34); MEAN CORPUSCULAR HGB CONC 31 g/dL (32-36); MEAN CORPUSCULAR VOLUME 100 fL (80-99); MEAN PLATELET VOLUME 9.3 fL (9.0-12.2); MONOCYTES # (AUTO) 0.7 10^3/uL (0.0-1.0); MONOCYTES % (AUTO) 10 % (0-12); NEUTROPHILS # (AUTO) 4.2 10^3/uL (1.8-7.8); NEUTROPHILS % (AUTO) 64 % (42-75); PLATELET COUNT 184 10^3/uL (130-400); WHITE BLOOD COUNT 6.6 10^3/uL (4.3-11.0)
[2022-02-18 05:24] LABS: CALCIUM 8.2 MG/DL (8.5-10.1)
[2022-02-18 05:28] LABS: CREATININE SERUM 0.97 MG/DL (0.60-1.30)
[2022-02-18] MEDS: POTASSIUM CL 10MEQ/50ML IVPB 50 ML IV SCH (05:46)
[2022-02-18] MEDS: KCL 20 MEQ TAB (K-DUR) PO SCH (05:46)
[2022-02-18] MEDS: MAGNESIUM 1 GM/100 ML IVPB 100 ML IV SCH ×2 (05:46→09:45)
[2022-02-18] MEDS: NS IV 1000 ML 1,000 ML IV SCH (06:45)
[2022-02-18] MEDS: inSUlin ASPART (NovoLOG) 1 UNIT/0.01 ML (CHARGE PER UNIT) SC SCH ×2 (06:46→11:16)
[2022-02-18] MEDS: CLOPIDOGREL 75 MG (PLAVIX) TABLET PO SCH (08:10)
[2022-02-18] MEDS ORDERED: CLOPIDOGREL 75 MG (PLAVIX) TABLET PO SCH (09:00)
[2022-02-18] MEDS: DOCUSATE SODIUM 100 MG (COLACE) CAP PO SCH (09:00)
[2022-02-18] MEDS ORDERED: ASPIRIN E.C. 81 MG (ECOTRIN) TAB PO SCH (09:00)
[2022-02-18] MEDS ORDERED: OSELTAMIVIR 75 MG (TAMIFLU) CAPSULE PO SCH (09:00)
[2022-02-18] MEDS: SENNOSIDES 8.6 MG (SENOKOT) TAB PO SCH (09:00)
[2022-02-18] MEDS ORDERED: CLOP75TA28 PO (09:39)
[2022-02-18] MEDS ORDERED: ASPI-1238 PO (09:39)
[2022-02-18] MEDS ORDERED: LEVO750T PO (09:41)
[2022-02-18] MEDS ORDERED: OSLT75C PO (09:41)
--- NOTE | 2022-02-18 09:42 | Cardiology Progress Note ---
Subjective Date Seen by Provider: Feb 18, 2022 Time Seen by Provider: 09:40 Subjective/Events-last exam Patient was seen at bedside, laying down comfortably, feeling better today. Review of Systems General: No Chills, No Night Sweats, No Fatigue, No Malaise, No Appetite, No Other HEENT: No Head Aches, No Visual Changes, No Eye Pain, No Ear Pain, No Dysphasia, No Sinus Congestion, No Post Nasal Drip, No Sore Throat, No Other Pulmonary: No Dyspnea; Cough; No Pleuritic Chest Pain, No Other Cardiovascular: No: Chest Pain, Palpitations, Orthopnea, Paroxysmal Noc. Dyspnea, Edema, Lt Headedness, Other Focused Exam Lactate Level 02/17/22 10:45: Lactic Acid Level 0.77 Objective-Cardiology Exam Last Set of Vital Signs Vital Signs 02/17/22 02/18/22 02/18/22 02/18/22 03:39 07:00 07:22 09:00 Temp 36.9 Pulse 93 Resp 18 B/P (MAP) 134/62 (86) Pulse Ox 96 O2 Delivery Nasal Cannula O2 Flow Rate 2.00 FiO2 24 I&O Intake and Output 02/18/22 00:00 Intake Total 1815 ml Output Total 2050 ml Balance -235 ml Intake Oral 565 ml IV Total 1250 ml Output Urine Total 2050 ml # Voids 1 # Bowel Movements 3 General: Alert, Oriented X3, Cooperative HEENT: Atraumatic, PERRLA Neck: Supple, No JVD, No Thyromegaly Lungs: Clear to Auscultation, Normal Air Movement Heart: Regular Rate, Normal S1, Normal S2, No Murmurs Abdomen: Normal Bowel Sounds, Soft, No Tenderness, No Hepatosplenomegaly, No Masses Extremities: No Clubbing, No Cyanosis, No Edema, Normal Pulses, No Tenderness/Swelling Skin: No Rashes, No Breakdown, No Significant Lesion Neuro: Normal Gait, Normal Speech, Strength at 5/5 X4 Ext, Normal Tone, Sensa tion Intact Psych/Mental Status: Mental Status NL, Mood NL Results Lab Laboratory Tests 02/18/22 04:56 A/P-Cardiology Admission Diagnosis Non-ST elevation myocardial infarction Paroxysmal atrial fibrillation Hypertension Hyperlipidemia Pneumonia Assessment/Plan Non-ST elevation myocardial infarction, has been having recurrent chest pain Coronary artery disease, history of 2 stents about 10 years ago Status post cardiac catheterization done on February 17, 2022, patent stent in the LAD with moderate disease in the LAD and diagonal artery, moderate disease at the ostial circumflex artery and ostial high obtuse marginal branch/ramus intermedius. Severe stenosis in the proximal right coronary artery status post deployment of 3 x 23 shane point stent with excellent results. Paroxysmal atrial fibrillation, has been maintained on warfarin and sotalol. Restart medication monitor blood pressure Pneumonia, bilateral pulmonary infiltrate, shortness of breath with cough and sputum production Influenza A positive, managed by medical team. Diabetes mellitus, episode of hypoglycemia. Managed by medical team Hypertension, restart medication monitor blood pressure Hyperlipidemia, restart medication and monitor lipids Obesity, BMI 32, discussed weight loss. Shortness of breath, probably secondary to pneumonia. DARCIE BEAL MD Feb 18, 2022 09:42
[2022-02-18] MEDS ORDERED: GABAPENTIN 300 MG (NEURONTIN) CAP PO SCH (10:00)
[2022-02-18] MEDS ORDERED: DIGOXIN 0.25 MG (LANOXIN) TAB PO SCH (10:00)
[2022-02-18] MEDS ORDERED: FAMOTIDINE 20 MG (PEPCID) TABLET PO SCH (10:00)
[2022-02-18] MEDS ORDERED: SOTALOL 80 MG (BETAPACE) TAB PO SCH (10:00)
[2022-02-18] MEDS ORDERED: lisINopril 10 MG (PRINIVIL) TABLET PO SCH (10:00)
--- NOTE | 2022-02-18 11:39 | Discharge Summary ---
Discharge Summary Hospital Course Problems/Dx: (1) NSTEMI (non-ST elevation myocardial infarction) Status: Acute (2) Sepsis due to pneumonia Status: Acute (3) Influenza A Status: Acute (4) T2DM (type 2 diabetes mellitus) Status: Acute Qualifiers: Qualified Codes: E11.649 - Type 2 diabetes mellitus with hypoglycemia wi thout coma (5) HTN (hypertension) Status: Chronic (6) HLD (hyperlipidemia) Status: Chronic (7) BPH (benign prostatic hyperplasia) Status: Chronic (8) CAD (coronary artery disease) Status: Chronic (9) Obesity Status: Chronic Hospital Course Date of Admission: Feb 16, 2022 at 18:06 Admission Diagnosis : NSTEMI Family Physician/Provider: Urszula Valencia Physician Date of Discharge: 02/18/22 Discharge Diagnosis: NSTEMI, sepsis due to pneumonia, influenza A Hospital Course: Jordin Arias is a 66 year old male with PMH HTN, T2DM, HLD, CAD, AFib, BPH, obesity, who was admitted with NSTEMI. His troponin was elevated. Cardiology was consulted and assisted with his care. He underwent a left heart cath and had a stent placed in the RCA. He was started on ASA which he should continue for a month. He was continued on Plavix. His course was complicated by sepsis due to pneumonia. He was treated with Levaquin. He also had influenza A and was given Tamiflu. He was not requiring any supplemental oxygen. He was discharged home in stable condition. He should have an INR check on Sunday. He should follow up with his PCP, Marta Rangel, in about a week. He should follow up with Cardiology as scheduled. He was discharged home in stable condition. Labs and Pending Lab Test: Laboratory Tests 02/17/22 16:46: Glucometer 189H 02/17/22 21:11: Glucometer 222H 02/18/22 04:56: White Blood Count 6.6, Red Blood Count 3.04L, Hemoglobin 9.5L, Hematocrit 30L, Mean Corpuscular Volume 100H, Mean Corpuscular Hemoglobin 31, Mean Corpuscular Hemoglobin Concent 31L, Red Cell Distribution Width 13.2, Platelet Count 184, Mean Platelet Volume 9.3, Immature Granulocyte % (Auto) 0, Neutrophils (%) (Auto) 64, Lymphocytes (%) (Auto) 24, Monocytes (%) (Auto) 10, Eosinophils (%) (Auto) 2, Basophils (%) (Auto) 0, Neutrophils # (Auto) 4.2, Lymphocytes # (Auto) 1.6, Monocytes # (Auto) 0.7, Eosinophils # (Auto) 0.1, Basophils # (Auto) 0.0, Immature Granulocyte # (Auto) 0.0, Sodium Level 136, Potassium Level 4.0, Chloride Level 109H, Carbon Dioxide Level 17L, Anion Gap 10, Blood Urea Nitrogen 18, Creatinine 0.97, Estimat Glomerular Filtration Rate 86, BUN/Creatinine Ratio 19, Glucose Level 164H, Calcium Level 8.2L, Magnesium Level 1.6 02/18/22 10:33: Glucometer 239H Home Meds Active Levofloxacin 750 Mg Tablet 750 Mg PO DAILY 5 Days Tamiflu (Oseltamivir Phosphate) 75 Mg Cap 75 Mg PO BID 4 Days Aspirin EC (Aspirin) 81 Mg Tablet.dr 81 Mg PO DAILY 30 Days Clopidogrel (Clopidogrel Bisulfate) 75 Mg Tablet 75 Mg PO DAILY 30 Days Reported Breztri Aerosphere Inhaler (Budesonide/Glycopyr/Formoterol) 160 Mcg-9 Mcg-4.8 Mcg/Actuation Hfa.aer.ad 1-2 Puff INH BID PRN Digoxin 250 Mcg (0.25 Mg) Tablet 250 Mcg PO DAILY Lisinopril 10 Mg Tablet 10 Mg PO DAILY Magnesium Oxide 400 Mg Tablet 400 Mg PO DAILY Sotalol AF (Sotalol HCl) 160 Mg Tablet 160 Mg PO BID Neurontin (Gabapentin) 300 Mg Capsule 300 Mg PO BID Glimepiride 4 Mg Tablet 4 Mg PO BID Famotidine 20 Mg Tablet 20 Mg PO BID Januvia (Sitagliptin Phosphate) 100 Mg Tablet 100 Mg PO DAILY Flomax (Tamsulosin HCl) 0.4 Mg Cap 0.4 Mg PO DAILY Metformin HCl 1,000 Mg Tablet 1,000 Mg PO BID Pioglitazone HCl 15 Mg Tablet 15 Mg PO DAILY Warfarin Sodium 5 Mg Tablet 5 Mg PO HS Atorvastatin Calcium 80 Mg Tablet 80 Mg PO DAILY Assessment/Pt Instructions See instructions Discharge Planning: >30 minutes discharge planning Discharge Instructions Discharge Diet: Low Sodium Diet, ADA Diet Activity as Tolerated: Yes Consultations Cardiology Discharge Physical Examination Vital Signs Vital Signs Date Time Temp Pulse Resp B/P (MAP) Pulse Ox O2 Delivery O2 Flow Rate FiO2 02/18/22 11:17 36.9 02/18/22 11:00 90 94 Room Air 02/18/22 10:00 2.00 02/18/22 09:00 18 02/17/22 03:39 24 General Appearance: No Apparent Distress, Obese Respiratory: Lungs Clear, No Respiratory Distress Cardiovascular: Regular Rate, Rhythm, No Murmur Gastrointestinal: Normal Bowel Sounds, Soft Extremity: Normal Inspection, No Pedal Edema Skin: Normal Color, Warm/Dry Neurologic/Psychiatric: Alert, Normal Mood/Affect Allergies: Coded Allergies: Penicillins (Verified Allergy, Severe, Anaphylaxis, 02/16/22) Sulfa (Sulfonamide Antibiotics) (Verified Allergy, Unknown, Hives, 02/16/22) Discharge Summary Date of Admission Feb 16, 2022 at 18:06 Date of Discharge Discharge Date: Feb 18, 2022 Discharge Time: 11:33 Admission Diagnosis NSTEMI Consults/Procedures Consulations Cardiology Procedures Left heart cath with coronary stent Discharge Diagnosis NSTEMI CAD Sepsis due to pneumonia Influenza A T2DM with hypoglycemia HTN AFib HLD BPH Obesity (1) NSTEMI (non-ST elevation myocardial infarction) Status: Acute (2) Sepsis due to pneumonia Status: Acute (3) Influenza A Status: Acute (4) T2DM (type 2 diabetes mellitus) Status: Acute Qualifiers: Qualified Codes: E11.649 - Type 2 diabetes mellitus with hypoglycemia without coma (5) HTN (hypertension) Status: Chronic (6) HLD (hyperlipidemia) Status: Chronic (7) BPH (benign prostatic hyperplasia) Status: Chronic (8) CAD (coronary artery disease) Status: Chronic (9) Obesity Status: Chronic LAINEY CERRATO MD Feb 18, 2022 11:38
[2022-02-18] MEDS ORDERED: warFARin 5 MG (COUMADIN) TAB PO SCH (21:00)
== END 2022-02-18 13:00 | disposition home or self-care (01) | DRG 246 ==
LOC: ICU 18:06
PROVIDERS: ADMIT Internal Medicine; ATTEND Internal Medicine
PROC: 027034Z Dilation of Coronary Artery, One Artery with Drug-eluting Intraluminal Device, Percutaneous Approach (ICD-10-PCS; principal; 2022-02-17)
PROC: B2111ZZ Fluoroscopy of Multiple Coronary Arteries using Low Osmolar Contrast (ICD-10-PCS; 2022-02-17)
DX: I21.4 Non-ST elevation (NSTEMI) myocardial infarction (principal); A41.89 Other specified sepsis; J10.00 Influenza due to other identified influenza virus with unspecified type of pneumonia; J44.0 Chronic obstructive pulmonary disease with (acute) lower respiratory infection; E11.649 Type 2 diabetes mellitus with hypoglycemia without coma; E11.65 Type 2 diabetes mellitus with hyperglycemia; I25.10 Atherosclerotic heart disease of native coronary artery without angina pectoris; E66.9 Obesity, unspecified; N40.0 Benign prostatic hyperplasia without lower urinary tract symptoms; F41.9 Anxiety disorder, unspecified; I48.0 Paroxysmal atrial fibrillation; I10 Essential (primary) hypertension; E78.5 Hyperlipidemia, unspecified; H54.7 Unspecified visual loss; Z79.84 Long term (current) use of oral hypoglycemic drugs; Z68.32 Body mass index [BMI] 32.0-32.9, adult; Z95.5 Presence of coronary angioplasty implant and graft; Z88.0 Allergy status to penicillin; Z88.2 Allergy status to sulfonamides
CPT/HCPCS: 36415; 71045; 80048; 80053; 82947; 83605; 83735; 84484; 85025; 85027; 85347; 85610; 85730; 87040; 87070; 87077; 87205; 87636; 93306; 93454; 94640; 94664; 94761